=== PATIENT | male | born 1940 | race Caucasian/White ===

== ENCOUNTER 2016-07-15 09:42 | Outpatient (RCR) | payer MEDICARE ==
[~2016-07-15 09:42] MED LIST: AML2.5T PO; APIX2.5T2 PO; ASCO10006 PO; ASPI-504 PO; ATOR20TA PO; CALC-140 PO; CIPR-273 PO; DLT180CCR PO; HYDR-3702 PO; HYDR500C2 PO; METR500T17 PO; MULT-850 PO; TIOT18CA IH
[2016-07-15 09:51] LABS: BASOPHILS % (AUTO) 1 % (0-2); EOSINOPHILS # (AUTO) 0.1 10^3uL; EOSINOPHILS % (AUTO) 1 % (0-4); LYMPHOCYTES # (AUTO) 2.4 X10^3; MEAN CORPUSCULAR HGB CONC 34.6 g/dL (31.0-37.0); MEAN PLATELET VOLUME 9.4 FL (6.0-9.5); MONOCYTES # (AUTO) 0.6 X10^3; MONOCYTES % (AUTO) 7 % (3-11); NEUTROPHILS # (AUTO) 5.5 X10^3; NEUTROPHILS % (AUTO) 63 % (51-67); PLATELET COUNT 385 10^3uL (150-450); WHITE BLOOD COUNT 8.73 10^3uL (4.0-11.0)
[2016-07-15 09:52] LABS: MEAN CORPUSCULAR HEMOGLOBIN 37.6 PG (26.0-34.0); MEAN CORPUSCULAR VOLUME 109 FL (80-100)
== END 2016-10-13 | disposition home or self-care (01) ==
LOC: LAB 09:42
PROVIDERS: ATTEND Internal Medicine Hematology & Oncology
DX: D75.1 Secondary polycythemia (principal)
CPT/HCPCS: 36415; 85025

== ENCOUNTER → 2016-08-21 | Outpatient (CLI) | payer MEDICARE ==
[2016-08-21 13:04] LABS: BASOPHILS % (AUTO) 2 % (0-2); EOSINOPHILS # (AUTO) 0.1 10^3uL; EOSINOPHILS % (AUTO) 1 % (0-4); LYMPHOCYTES # (AUTO) 2.2 X10^3; MEAN CORPUSCULAR HGB CONC 34.6 g/dL (31.0-37.0); MEAN PLATELET VOLUME 9.3 FL (6.0-9.5); MONOCYTES # (AUTO) 0.5 X10^3; MONOCYTES % (AUTO) 6 % (3-11); NEUTROPHILS # (AUTO) 5.2 X10^3; NEUTROPHILS % (AUTO) 64 % (51-67); PLATELET COUNT 538 10^3uL (150-450); WHITE BLOOD COUNT 8.16 10^3uL (4.0-11.0)
[2016-08-21 13:25] LABS: ANION GAP 16.9 MEQ/L (3-15)
[2016-08-21 14:03] LABS: MEAN CORPUSCULAR HEMOGLOBIN 37.4 PG (26.0-34.0); MEAN CORPUSCULAR VOLUME 108 FL (80-100)
[2016-08-21 14:57] LABS: BILIRUBIN,URINE Negative (Negative); CLARITY,URINE Clear; COLOR,URINE Yellow; GLUCOSE, URINE (UA) Negative (Negative); UROBILINOGEN,URINE 0.2 mg/dL (0.2-1.0)
[2016-08-21 15:01] LABS: URINE CENTRIFUGED VOLUME 12 mL
[2016-08-21 15:06] LABS: RBC,URINE 0-2 /HPF
[2016-08-27 08:36] LABS: LEUKOCYTE ESTERASE, URINE Trace (Negative)
== END ==
LOC: LAB 12:33
PROVIDERS: ATTEND Family Medicine
DX: Z01.818 Encounter for other preprocedural examination (principal); M17.12 Unilateral primary osteoarthritis, left knee; R82.99 Other abnormal findings in urine; I48.91 Unspecified atrial fibrillation
CPT/HCPCS: 36415; 71020; 80048; 81003; 81015; 85025; 85610; 85730; 87088

== ENCOUNTER 2016-09-16 10:30 | Outpatient (RCR) | payer MEDICARE ==
--- NOTE | 2016-09-13 13:13 | PT/OT/ST INITIAL EVALUATION ---
Department of Health and Human Services Form Approved Health Care Financing Administration OMB No. [id number] PLAN OF CARE/ASSESSMENT FOR OUTPATIENT REHABILITATION (Complete for Initial Claims Only) 1. LAST NAME Carissa FIRST NAME Elier RODRIGUEZ 2. ACC # [id number] 3. HICN [id number] 4. TYPE: X PT 5. REFERRING PHYSICIAN Fransico Ford M.D. 6. PRIMARY DX Left total knee arthroplasty 7. SECONDARY DX 8. ONSET DATE 09/12/2016 9. REFERRAL DATE 09/04/2016 10. SOC. DATE/TIME 09/05/2016 11. CHARGES Evaluation - 81758 Exercise - 11386 - 2 units 13. G CODES [id number] 14. PRIOR LEVEL OF FUNCTION; PERTINENT HISTORY (Prior therapy results, reason for referral.) S: Prior to today's therapy, the patient did consent to today's evaluation and treatment. The patient is a 76 -year-old male referred to physical therapy by Dr. Fransico Ford following a left total knee arthroplasty on 09/02/2016. The patient reports a long standing history of left knee pain that limited his ability to ambulate with golfing. The patient did note a lot of popping in the left knee joint especially with golfing and would like to be able to return to golfing without issues therefore underwent the knee replacement. Prior level of function: The patient ambulates around his home independently without an assisted device. He is still driving. 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 Current level of function: The patient does ambulate with a front wheeled walker at this time and has decreased functional mobility secondary to postoperative pain and range of motion limitations. Therapy History: No recent therapy history reported. Pain level: Maximum pain level is 8-9/10. Current pain level is 7-8/10 with initiation of left knee movement. Pain is postoperative knee pain. Past medical history: Includes presence of a pacemaker, polycythemia vera which patient is on medication to address this, he has undergone a CABG as well has a history of multiple bone fractures. Medication list: Include Atorvastatin, Hydroxyurea, Metoprolol, Clopidogrel, Kiran aspirin, and he is currently taking hydrocodone for pain. Health rating: The patient's health rating is not rated per his medical history sheet; activity level was reported as moderate. Patient's goal: The patient's goal for physical therapy is to walk pain free and be able to return to playing golf. 15. INITIAL ASSESSMENT/SAFETY PRECAUTIONS/MEDICAL COMPLICATIONS (Level of function at start of care. Be specific, use objective measures, list problems.) O: ASSESSMENT OF PATIENT'S GAIT: Reveals the patient ambulating with a front wheeled walker, demonstrating a foot flat position, and decreased heel straight push off at this time. The patient's incision is covered with an Aquacel bandage with minimal drainage noted. Minimal redness and postoperative swelling is noted as well. RANGE OF MOTION: Right knee active range of motion is 0-150 degrees. Left knee active range of motion is lacking 8 degrees of extension and he is able to flex to 100 degrees. STRENGTH: Right hip flexion 5/5, left 3/5. Right knee flexion 4+/5, left 3/5. Right knee extension 5/5, left 2/5. Right ankle dorsiflexion 5/5, left 2/5. TODAY'S TREATMENT: Today's treatment consisted of educating the patient on the plan to progress his rehabilitation following his recent knee replacement. The physical therapist initiated range of motion, basic quadriceps strengthening exercises, as well as educated the patient on proper gait sequencing. The patient declined using ice at this time and stated that he would use ice at home. 16. INITIAL POC: (Specify procedures, modalities, short and fci goals) A: The patient presents at physical therapy 4 days status post left total knee arthroplasty with resultant impaired range of motion and weakness in the left lower extremity. The patient does have an excellent outcome due to his motivation to return to golfing and improve his functional mobility. OUTCOME ASSESSMENT: The patient scores a 75% disability on the lower extremity functional index with a code G8978 modifier CL. THERAPY GOALS X 2 WEEKS: 1. The patient will report compliance with his home exercise program and pain management strategies. 2. The patient will have less knee extension of less than or equal to 5 degrees. 3. The patient will have left lower extremity strength to be a minimum of 3+/5 in hip flexion, knee flexion, and knee extension. GOALS X 4 WEEKS: 1. The patient will improve left knee active range of motion to be 0 degrees of extension and 110 degrees of flexion. 2. The patient will demonstrate the ability to ambulate without an assisted device with proper heel toe gait pattern. 3. The patient will demonstrate proper quadriceps control, both concentrically and eccentrically with step ups and step downs of a 6 inch step. 4. The patient will have a minimum of a 15% decrease on his lower extremity functional index. PLAN: Plan to treat this patient 3 times a week for 2 weeks followed by 2 times a week for 4 weeks in order to address left knee range of motion and strength deficits. Treatment will include modalities including a vasopneumatic device to address pain and swelling, manual therapy will be utilized as needed for scar tissue mobilization and patellar mobilization when appropriate, therapeutic exercise emphasis on improving range of motion followed by progressive strengthening, gait training, balance and proprioceptive training. The patient was educated to continue with the home exercise program issued to him at the surgical hospital. This exercise program will be progressed when the patient is ready. Thank you for the referral of this patient. 17. FUNCTIONAL LEVEL (End of claim period) 18. PHYSICIAN SIGNATURE ? ON FILE OR ENTER HERE: 19. DATE: I certify the need for these services furnished under this plan of care and if for partial hospitalization. 20. CERTIFICATION FROM THROUGH FORM
== END 2016-09-27 12:00 | disposition home or self-care (01) ==
LOC: PT 10:30
PROVIDERS: ATTEND Orthopaedic Surgery
DX: Z47.1 Aftercare following joint replacement surgery (principal); Z96.652 Presence of left artificial knee joint
CPT/HCPCS: 97016; 97110; 97140; 97161; G8978; G8979

== ENCOUNTER → 2016-09-16 | Outpatient (CLI) | payer MEDICARE ==
[2016-09-16 10:17] LABS: BASOPHILS % (AUTO) 0 % (0-2); EOSINOPHILS % (AUTO) 0 % (0-4); LYMPHOCYTES # (AUTO) 1.4 X10^3; MEAN CORPUSCULAR HGB CONC 32.3 g/dL (31.0-37.0); MEAN PLATELET VOLUME 8.9 FL (6.0-9.5); MONOCYTES # (AUTO) 0.9 X10^3; MONOCYTES % (AUTO) 6 % (3-11); NEUTROPHILS # (AUTO) 12.8 X10^3; NEUTROPHILS % (AUTO) 84 % (51-67); WHITE BLOOD COUNT 15.31 10^3uL (4.0-11.0)
[2016-09-16 10:42] LABS: MEAN CORPUSCULAR HEMOGLOBIN 36.2 PG (26.0-34.0); MEAN CORPUSCULAR VOLUME 112 FL (80-100)
[2016-09-16 10:47] LABS: PLATELET COUNT 805 10^3uL (150-450)
== END ==
LOC: LAB 09:57
PROVIDERS: ATTEND Internal Medicine Hematology & Oncology
DX: D75.1 Secondary polycythemia (principal)
CPT/HCPCS: 36415; 85025

== ENCOUNTER → 2016-10-28 | Outpatient (CLI) | payer MEDICARE ==
[2016-10-28 09:21] LABS: BASOPHILS % (AUTO) 1 % (0-2); EOSINOPHILS # (AUTO) 0.1 10^3uL; EOSINOPHILS % (AUTO) 1 % (0-4); LYMPHOCYTES # (AUTO) 1.8 X10^3; MEAN CORPUSCULAR HGB CONC 32.7 g/dL (31.0-37.0); MEAN PLATELET VOLUME 9.1 FL (6.0-9.5); MONOCYTES # (AUTO) 0.5 X10^3; MONOCYTES % (AUTO) 7 % (3-11); NEUTROPHILS # (AUTO) 4.7 X10^3; NEUTROPHILS % (AUTO) 66 % (51-67); PLATELET COUNT 472 10^3uL (150-450)
[2016-10-28 09:22] LABS: MEAN CORPUSCULAR HEMOGLOBIN 35.9 PG (26.0-34.0); MEAN CORPUSCULAR VOLUME 110 FL (80-100)
== END ==
LOC: LAB 09:06
PROVIDERS: ATTEND Internal Medicine Hematology & Oncology
DX: D75.1 Secondary polycythemia (principal)
CPT/HCPCS: 36415; 85025